=== PATIENT | male | born 1960 | race African-American/Black ===

== ENCOUNTER → 2017-01-20 | Outpatient (CLI) | payer MEDICARE ==
[~2017-01-20] VITALS: Ht 170.2 cm; Wt 72.6 kg
[~2017-01-20] MED LIST: FISH600C PO; FLOM5CAP PO; FLUO20CA9 PO; HYDR25TAB PO; LIDOCAINE 2% INJ 100 MG/5 ML SDV (FOR ANES.) As Ordered ONE; OMEG340C PO; PRAV40TA2 PO; PROPOFOL 200 MG/20 ML VIAL As Ordered ONE
[2017-01-20] MEDS: NS 1,000 ML IV SCH ×2 (12:23→12:24)
--- NOTE | 2017-01-20 13:07 | ROOR ---
Patient Name: Juanito Horner Procedure Date: 01/20/2017 12:27 PM Date of : 1960 Age: 56 Room: [facility] Gender: Male Note Status: Finalized Procedure: Colonoscopy Indications: Screening for colorectal malignant neoplasm Providers: Chandan CARMONA MD Referring MD: AIME SALOMON MD Requesting Provider: Medicines: Monitored Anesthesia Care Complications: No immediate complications. Procedure: Pre-Anesthesia Assessment: - The heart rate, respiratory rate, oxygen saturations, blood pressure, adequacy of pulmonary ventilation, and response to care were monitored throughout the procedure. The Colonoscope was introduced through the anus and advanced to the cecum, identified by appendiceal orifice and ileocecal valve. The colonoscopy was performed without difficulty. The patient tolerated the procedure well. The quality of the bowel preparation was good. Findings: The perianal and digital rectal examinations were normal. (EXAM: Complete, PREP:Adequate) A 6 mm polyp was found in the hepatic flexure. The polyp was semi-sessile. The polyp was removed with a hot snare. Resection and retrieval were complete. Three semi-pedunculated polyps were found in the splenic flexure. The polyps were 5 to 8 mm in size. These polyps were removed with a hot snare. Resection and retrieval were complete. Four semi-pedunculated polyps were found in the sigmoid colon. The polyps were 5 to 8 mm in size. These polyps were removed with a hot snare. Resection and retrieval were complete. To prevent bleeding after the polypectomy, one hemostatic clip was successfully placed. There was no bleeding at the end of the procedure. Small Internal Hemorrhoids. Impression: - One 6 mm polyp at the hepatic flexure, removed with a hot snare. Resected and retrieved. - Three 5 to 8 mm polyps at the splenic flexure, removed with a hot snare. Resected and retrieved. - Four 5 to 8 mm polyps in the sigmoid colon, removed with a hot snare. Resected and retrieved. Clip was placed. - Small Internal Hemorrhoids. Recommendation: - No ibuprofen, naproxen, or other non-steroidal anti-inflammatory drugs for 10 days after polyp removal. - Telephone endoscopist for pathology results in 2 weeks. - If the pathology report reveals adenomatous tissue, then repeat the colonoscopy for surveillance based on pathology results 1-3 years. Chandan Carmona MD Chandan CARMONA MD 01/20/2017 1:07:04 PM This report has been signed electronically. Number of Addenda: 0 Note Initiated On: 01/20/2017 12:27 PM Estimated Blood Loss: Estimated blood loss: none.
[2017-01-20 13:30] VITALS: BP 125/80
== END | disposition home or self-care (01) ==
LOC: M OPP 09:46
PROVIDERS: ATTEND Internal Medicine Gastroenterology
DX: Z12.11 Encounter for screening for malignant neoplasm of colon (principal); D12.3 Benign neoplasm of transverse colon; D12.5 Benign neoplasm of sigmoid colon; K64.8 Other hemorrhoids; E78.5 Hyperlipidemia, unspecified; F32.9 Major depressive disorder, single episode, unspecified; I69.354 Hemiplegia and hemiparesis following cerebral infarction affecting left non-dominant side; R06.02 Shortness of breath; N18.9 Chronic kidney disease, unspecified; N28.1 Cyst of kidney, acquired; N40.0 Benign prostatic hyperplasia without lower urinary tract symptoms; F17.210 Nicotine dependence, cigarettes, uncomplicated; Z79.899 Other long term (current) drug therapy; I12.9 Hypertensive chronic kidney disease with stage 1 through stage 4 chronic kidney disease, or unspecified chronic kidney disease